=== PATIENT | female | born 1955 | race Caucasian/White ===

== ENCOUNTER 2019-06-23 09:21 | Inpatient (IN) | payer MEDICARE, OTHER ==
[~2019-06-23] VITALS: Ht 162.6 cm; Wt 87.3 kg
--- NOTE | 2019-06-23 10:21 | NUR ---
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 INSTRUCTED ON COLLECTION OF CLEAN CATCH URINE AND PT AMBULATED TO BATHROOM
[2019-06-23 10:51] LABS: BASOPHILS # (AUTO) 0.03 x10^3/uL (0-0.1); BASOPHILS % (AUTO) 0 % (0-1); EOSINOPHILS # (AUTO) 0.41 x10^3/uL (0-0.4); EOSINOPHILS % (AUTO) 3 % (1-7); LYMPHOCYTES # (AUTO) 1.75 x10^3/uL (1-3.4); LYMPHOCYTES % (AUTO) 13 % (22-44); MD NO; MEAN CORPUSCULAR HEMOGLOBIN 31.3 pg (27.0-34.8); MEAN CORPUSCULAR VOLUME 94.8 fL (80-100); MEAN PLATELET VOLUME 8.2 fL (7.4-10.4); MONOCYTES # (AUTO) 0.72 x10^3/uL (0.2-0.8); MONOCYTES % (AUTO) 5 % (2-9); NEUTROPHILS # (AUTO) 10.98 x10^3/uL (1.8-6.8); NEUTROPHILS % (AUTO) 79 % (42-75); PLATELET COUNT 185 x10^3/uL (130-400); RED BLOOD COUNT 4.55 x10^6/uL (3.82-5.3)
--- NOTE | 2019-06-23 10:54 | NUR ---
PT PRESENTS TO ED WITH C/O SOB AND STERNAL CHEST PRSSURE WITH EXERTION. PT STATES SYMPTOMS HAVE BEEN PRESENT X 2 WEEKS, STATES SHE RESUMED MEDICATION EVISTA 2 WEEKS AGO WELL (STOPPED TAKING THIS MED ORIGINALLY D/T FATIGUE AND LEG CRAMPS). PT DENIES LEG CRAMPS AT THIS TIME. PT IS A&OX4, SPEAKING IN FULL SENTENCES WITHOUT DIFFICULTY, RESPS EVEN AND UNLABORED. PT IS ON ALL MONITORS. CALL LIGHT IN REACH. AWAITING LAB AND CXR RESULTS AT THIS TIME.
[2019-06-23 11:02] LABS: ALBUMIN 3.5 g/dL (3.4-5.0); ANION GAP 7 mmol/L (5-15); CALCIUM 8.8 mg/dL (8.5-10.1); CHLORIDE 109 mmol/L (98-107); CREATININE 0.85 mg/dL (0.55-1.02)
--- NOTE | 2019-06-23 11:02 | NUR ---
REPORT RECEIVED FROM MICKY SCHROEDER. CARE ASSUMED.
--- NOTE | 2019-06-23 11:03 | NUR ---
report given to MICKY Cummings at bedside.
[2019-06-23 11:06] LABS: TROPONIN I < 0.015 ng/mL (0.000-0.045)
[2019-06-23] MEDS ORDERED: SODIUM CHLORIDE FLUSH 10ML SYR IVF ONE ×2 (11:30)
[2019-06-23] MEDS ORDERED: ASPIRIN 81 MG TABLET CHEW PO ONE (11:30)
[2019-06-23] MEDS ORDERED: ASPIRIN 81 MG TABLET CHEW ONE (11:35)
--- NOTE | 2019-06-23 11:46 | NUR ---
CT WAITING FOR IV ACCESS
--- NOTE | 2019-06-23 11:52 | NUR ---
PT MEDICATED PER NOV. 20G PIV IN LEFT AC STARTED.
--- NOTE | 2019-06-23 11:58 | NUR ---
CT CALLED TO INFORM THEM THAT PT IS READY TO GO.
--- NOTE | 2019-06-23 12:01 | NUR ---
PT TO CT.
[2019-06-23] MEDS ORDERED: THYR90TA PO (12:04)
[2019-06-23] MEDS ORDERED: TRAZ-137 PO (12:04)
[2019-06-23] MEDS ORDERED: TRAM50TA2 PO (12:04)
[2019-06-23] MEDS ORDERED: RALO60TA PO (12:04)
--- NOTE | 2019-06-23 12:04 | NUR ---
MED REC COMPLETED BY THIS RN. REPORT GIVEN TO MICKY PAUL. PT TO TRANSFER TO INPATIENT STATUS.
[2019-06-23] MEDS ORDERED: OMNIPAQUE 350 MG/ML, 100ML BOTTLE ONE (12:23)
--- NOTE | 2019-06-23 12:23 | NUR ---
PT BACK FROM CT.
[2019-06-23] MEDS ORDERED: HEPARIN 5,000 UNITS/ML, 1ML ONE (12:51)
[2019-06-23] MEDS ORDERED: HEPARIN 25,000 UNITS/500ML PMX 500 ML ONE (12:51)
[2019-06-23] MEDS ORDERED: HEPARIN 5,000 UNITS/ML, 1ML IV ONE (13:00)
[2019-06-23] MEDS: HEPARIN 25,000 UNITS/500ML PMX 500 ML IV PRN (13:01)
--- NOTE | 2019-06-23 13:02 | NUR ---
HEPARIN GTT STARTED IN ED.
[2019-06-23] MEDS ORDERED: hydrALAzine 20 MG/ML, 1ML IVPush PRN (13:30)
[2019-06-23] MEDS ORDERED: morphine SULFATE 10 MG/ML, 1ML IVPush PRN (13:30)
[2019-06-23] MEDS ORDERED: ACETAMINOPHEN 325 MG TABLET PO PRN (13:30)
[2019-06-23] MEDS ORDERED: ONDANSETRON 2MG/ML, 2ML IVPush PRN (13:30)
[2019-06-23 13:32] VITALS: BP 137/70
[2019-06-23] MEDS: D5%-0.45NACL+KCL 20MEQ 1,000 ML IV SCH (15:33)
[2019-06-23 18:58] LABS: TROPONIN I < 0.015 ng/mL (0.000-0.045)
[2019-06-23 19:09] VITALS: BP 137/71
[2019-06-23] MEDS: TRAZODONE 100MG TABLET PO SCH (20:51)
[2019-06-24 00:23] VITALS: BP 126/61
[2019-06-24 00:43] LABS: TROPONIN I < 0.015 ng/mL (0.000-0.045)
[2019-06-24] MEDS: D5%-0.45NACL+KCL 20MEQ 1,000 ML IV SCH ×2 (01:15→14:11)
[2019-06-24] MEDS: HEPARIN 5,000 UNITS/ML, 1ML IV PRN ×2 (01:32→14:09)
[2019-06-24 05:23] LABS: BASOPHILS # (AUTO) 0.05 x10^3/uL (0-0.1); BASOPHILS % (AUTO) 1 % (0-1); EOSINOPHILS % (AUTO) 7 % (1-7); LYMPHOCYTES # (AUTO) 2.33 x10^3/uL (1-3.4); LYMPHOCYTES % (AUTO) 27 % (22-44); MD NO; MEAN CORPUSCULAR HEMOGLOBIN 30.9 pg (27.0-34.8); MEAN CORPUSCULAR HGB CONC 32.7 g/dL (32.4-35.8); MEAN CORPUSCULAR VOLUME 94.3 fL (80-100); MEAN PLATELET VOLUME 8.5 fL (7.4-10.4); MONOCYTES # (AUTO) 0.56 x10^3/uL (0.2-0.8); MONOCYTES % (AUTO) 7 % (2-9); NEUTROPHILS % (AUTO) 59 % (42-75); PLATELET COUNT 172 x10^3/uL (130-400); RED BLOOD COUNT 4.08 x10^6/uL (3.82-5.3); RED CELL DISTRIBUTION WIDTH 13.1 % (9.6-15.2)
[2019-06-24 05:41] LABS: ANION GAP 5 mmol/L (5-15); CALCIUM 8.1 mg/dL (8.5-10.1); CHLORIDE 113 mmol/L (98-107); CREATININE 0.75 mg/dL (0.55-1.02)
[2019-06-24 07:51] VITALS: BP 121/71
[2019-06-24] MEDS: THYROID 30 MG TABLET PO SCH (08:14)
[2019-06-24] MEDS ORDERED: RALOXIFENE 60 MG TABLET PO SCH (09:00)
[2019-06-24 13:24] VITALS: BP 125/82
[2019-06-24] MEDS: HEPARIN 25,000 UNITS/500ML PMX 500 ML IV PRN (14:10)
[2019-06-24 19:17] VITALS: BP 123/78
[2019-06-24] MEDS: TRAZODONE 100MG TABLET PO SCH (20:03)
[2019-06-25] MEDS: D5%-0.45NACL+KCL 20MEQ 1,000 ML IV SCH ×3 (00:18→23:43)
[2019-06-25 00:29] VITALS: BP 106/68
[2019-06-25 06:52] VITALS: BP 107/69
[2019-06-25] MEDS: THYROID 30 MG TABLET PO SCH (08:33)
[2019-06-25] MEDS: HEPARIN 25,000 UNITS/500ML PMX 500 ML IV PRN (10:28)
[2019-06-25 12:32] VITALS: BP 115/74
[2019-06-25] MEDS: TRAZODONE 100MG TABLET PO SCH (19:43)
[2019-06-25 21:33] VITALS: BP 128/76
[2019-06-26 03:55] VITALS: BP 118/74
[2019-06-26] MEDS: HEPARIN 25,000 UNITS/500ML PMX 500 ML IV PRN (05:34)
[2019-06-26 07:10] VITALS: BP 120/75
[2019-06-26] MEDS: HEPARIN 5,000 UNITS/ML, 1ML IV PRN (07:14)
[2019-06-26] MEDS: THYROID 30 MG TABLET PO SCH (09:59)
[2019-06-26 14:40] VITALS: BP 120/77
[2019-06-26 19:58] VITALS: BP 112/74
[2019-06-26] MEDS: TRAZODONE 100MG TABLET PO SCH (20:33)
[2019-06-27 01:50] VITALS: BP 114/73
[2019-06-27] MEDS: HEPARIN 25,000 UNITS/500ML PMX 500 ML IV PRN ×2 (01:55→20:15)
[2019-06-27 08:00] VITALS: BP 120/70
[2019-06-27] MEDS: THYROID 30 MG TABLET PO SCH (09:15)
[2019-06-27 14:00] VITALS: BP 113/78
[2019-06-27] MEDS: POLYETHYLENE GLYCOL 17 GM PACKET NG PRN (18:10)
[2019-06-27 19:19] VITALS: BP 112/70
[2019-06-27] MEDS: TRAZODONE 100MG TABLET PO SCH (20:10)
[2019-06-28 00:57] VITALS: BP 101/66
[2019-06-28 08:00] VITALS: BP 111/77
[2019-06-28] MEDS: THYROID 30 MG TABLET PO SCH (08:32)
[2019-06-28] MEDS: POLYETHYLENE GLYCOL 17 GM PACKET NG PRN (10:48)
[2019-06-28] MEDS: HEPARIN 25,000 UNITS/500ML PMX 500 ML IV PRN (13:17)
[2019-06-28 14:00] VITALS: BP 109/64
[2019-06-28 19:23] VITALS: BP 133/87
[2019-06-28] MEDS: TRAZODONE 100MG TABLET PO SCH (20:24)
[2019-06-29 01:32] VITALS: BP 104/69
[2019-06-29] MEDS: HEPARIN 25,000 UNITS/500ML PMX 500 ML IV PRN (07:12)
[2019-06-29 07:17] VITALS: BP 115/74
[2019-06-29] MEDS: THYROID 30 MG TABLET PO SCH (08:30)
[2019-06-29 13:37] VITALS: BP 101/69
[2019-06-29 19:51] VITALS: BP 119/77
[2019-06-29] MEDS: POLYETHYLENE GLYCOL 17 GM PACKET NG PRN (20:23)
[2019-06-29] MEDS: TRAZODONE 100MG TABLET PO SCH (20:23)
[2019-06-30 02:34] VITALS: BP 109/71
[2019-06-30] MEDS: HEPARIN 25,000 UNITS/500ML PMX 500 ML IV PRN (03:01)
[2019-06-30 07:14] VITALS: BP 110/70
[2019-06-30] MEDS: THYROID 30 MG TABLET PO SCH (09:00)
[2019-06-30] MEDS ORDERED: NALOXONE 1 MG/ML, 2ML ONE (12:54)
[2019-06-30] MEDS ORDERED: FENTANYL PF 100 MCG/2ML ONE (12:54)
[2019-06-30] MEDS ORDERED: FLUMAZENIL 0.1 MG/1 ML, 5ML ONE (12:54)
[2019-06-30] MEDS ORDERED: MIDAZOLAM 1 MG/ML, 5ML ONE ×2 (12:54)
[2019-06-30 12:55] VITALS: BP 122/82
[2019-06-30] MEDS ORDERED: LIDOCAINE 1%, 10ML ONE (13:38)
[2019-06-30 19:15] VITALS: BP 118/81
[2019-06-30] MEDS: TRAZODONE 100MG TABLET PO SCH (21:26)
[2019-07-01 02:25] VITALS: BP 102/65
[2019-07-01] MEDS ORDERED: APIXABAN MC SCH (07:00)
[2019-07-01] MEDS: THYROID 30 MG TABLET PO SCH (08:53)
[2019-07-01] MEDS ORDERED: APIXABAN 5 MG TABLET PO SCH (09:00)
[2019-07-01 09:45] VITALS: BP 110/80
[2019-07-01] MEDS ORDERED: APIX5TAB PO (09:46)
== END 2019-07-01 12:44 | disposition home or self-care (01) | DRG 176 ==
LOC: ED 11:29 → EDIP 11:30 → ED 11:47 → 5SO 13:22 → 4WST 06-25 18:13 → DCLOUNGE 07-01 12:30
PROVIDERS: ADMIT Hospitalist; ATTEND Hospitalist
PROC: 0BBC3ZX Excision of Right Upper Lung Lobe, Percutaneous Approach, Diagnostic (ICD-10-PCS; principal; 2019-06-30)
DX: I26.99 Other pulmonary embolism without acute cor pulmonale (principal); I20.0 Unstable angina; J84.10 Pulmonary fibrosis, unspecified; E03.9 Hypothyroidism, unspecified; G47.00 Insomnia, unspecified; G89.29 Other chronic pain; M19.90 Unspecified osteoarthritis, unspecified site; M54.9 Dorsalgia, unspecified; R91.1 Solitary pulmonary nodule; M41.9 Scoliosis, unspecified; Z80.0 Family history of malignant neoplasm of digestive organs; Z90.710 Acquired absence of both cervix and uterus; E66.9 Obesity, unspecified; Z68.33 Body mass index [BMI] 33.0-33.9, adult
CPT/HCPCS: 32405; 36415; 71045; 71275; 77012; 80048; 82040; 82378; 84484; 85025; 85520; 86301; 88305; 93005; 93306; 93970; 99156; 99157; G0378; J1644; J2250; J3010; Q9967; J2310; J3480